=== PATIENT | female | born 1980 | race Two or more races ===

== ENCOUNTER 2017-05-17 18:01 | Observation (INO) | payer MEDICAID ==
[~2017-05-17] VITALS: Ht 154.9 cm; Wt 80.7 kg
[2017-05-17 18:36] LABS: CLARITY URINE CLOUDY (CLEAR); COLOR URINE DARK YELLOW (YELLOW); GLUCOSE URINE NEGATIVE (NEGATIVE); KETONES URINE TRACE (NEGATIVE); LEUKOCYTE ESTERASE URINE TRACE (NEGATIVE); NITRITE URINE NEGATIVE (NEGATIVE); OCCULT BLOOD URINE NEGATIVE (NEGATIVE); PROTEIN URINE NEGATIVE (NEGATIVE); SPECIFIC GRAVITY URINE 1.022 (1.005-1.030)
[2017-05-17] MEDS: LACTATED RINGERS 1,000 ML IV SCH ×2 (19:09→19:54)
[2017-05-17] MEDS ORDERED: CEFAZOLIN 2,000 MG in DEXT 5% WATER 100 ML IV SCH (20:00)
[2017-05-17] MEDS: TERBUTALINE SULFATE 1MG/ML VIAL SUBCUT PRN ×2 (20:08→21:33)
[2017-05-17] MEDS ORDERED: CITRIC ACID/SODIUM CITRATE SOLN 30ML UDC PO SCH (21:30)
== END 2017-05-17 22:37 | disposition home or self-care (01) ==
LOC: L&D 18:01
PROVIDERS: ADMIT Obstetrics & Gynecology; ATTEND Obstetrics & Gynecology
DX: O26.893 Other specified pregnancy related conditions, third trimester (principal); R10.9 Unspecified abdominal pain; M54.9 Dorsalgia, unspecified; Z3A.34 34 weeks gestation of pregnancy
CPT/HCPCS: 81001; 96361; 96365; 96372; G0378; J0690; J3105; J7120; 96360; J7060

== ENCOUNTER 2017-08-13 00:58 | Inpatient (IN) | payer MEDICAID ==
[~2017-08-13] VITALS: Ht 152.4 cm; Wt 71.2 kg
[2017-08-13] MEDS ORDERED: SODIUM CHLORIDE 0.9% 1,000 ML IV ONE (02:43)
[2017-08-13] MEDS ORDERED: KETOROLAC 30MG/ML VIAL IV STA (02:43)
[2017-08-13 03:06] LABS: INR 1.1
[2017-08-13 03:08] LABS: HCG SCREEN NEGATIVE
[2017-08-13 03:09] LABS: BASOPHILS % 0.3 % (0.0-2.0); EOSINOPHILS % 0.7 % (0.0-5.0); HEMATOCRIT. 34.4 % (36.0-48.0); HEMOGLOBIN. 10.9 g/dL (12.0-16.0); MEAN CORPUSCULAR HEMOGLOBIN 23.6 pg (28.0-32.0); MEAN CORPUSCULAR VOLUME 74.8 fL (81.0-99.0); MEAN PLATELET VOLUME 9.3 fl (7.4-10.4); PLATELET 320 x1000/uL (130-400); RED CELL DISTRIBUTION WIDTH 26.4 % (11.6-14.6)
[2017-08-13 03:14] LABS: CARBON DIOXIDE 29 mEq/L (21-32); CHLORIDE 104 mEq/L (98-107)
[2017-08-13 03:43] LABS: CLARITY URINE CLEAR (CLEAR); COLOR URINE YELLOW (YELLOW); KETONES URINE NEGATIVE (NEGATIVE); LEUKOCYTE ESTERASE URINE 1+ (NEGATIVE); NITRITE URINE NEGATIVE (NEGATIVE); OCCULT BLOOD URINE NEGATIVE (NEGATIVE); PH URINE 8.5 (4.5-8.0); PROTEIN URINE NEGATIVE (NEGATIVE); SPECIFIC GRAVITY URINE 1.017 (1.005-1.030)
[2017-08-13] MEDS ORDERED: PIPERACILLIN/TAZOBACTAM 3.375GM/50ML PREMIX IV ONE (04:30)
[2017-08-13] MEDS ORDERED: PIPERACILLIN/TAZ 3.375G PREMIX 50 ML IV NR (04:45)
[2017-08-13 09:00] VITALS: BP 100/62
[2017-08-13] MEDS ORDERED: KETOROLAC 30MG/ML VIAL IV PRN (09:30)
[2017-08-13] MEDS ORDERED: MORPHINE SULFATE 4 MG/ML CPJ (NOT FOR IM USE) IV PRN (11:30)
[2017-08-13 12:00] VITALS: BP_SYST 100; BP_SYST 102; BP_DIAS 62
[2017-08-13 13:49] LABS: HEPATITIS B SURFACE ANTIGEN NEGATIVE
[2017-08-13] MEDS: SODIUM CHLORIDE 0.9% 1,000 ML IV SCH (13:52)
[2017-08-13 14:18] LABS: HEPATITIS B CORE AB IGM NEGATIVE
[2017-08-13 14:19] LABS: HEPATITIS A AB IGM NEGATIVE (NEGATIVE)
[2017-08-13 16:00] VITALS: BP 97/60
[2017-08-13 20:00] VITALS: BP 98/66
[2017-08-14] VITALS: BP 99/82
[2017-08-14] MEDS: HYDROCODONE/ACETAMINOPHEN 5/325MG TABLET PO PRN ×2 (00:37→23:39)
[2017-08-14] MEDS: SODIUM CHLORIDE 0.9% 1,000 ML IV SCH ×3 (00:39→23:40)
[2017-08-14 04:00] VITALS: BP 98/50
[2017-08-14 06:06] LABS: BASOPHILS % 0.7 % (0.0-2.0); EOSINOPHILS % 6.5 % (0.0-5.0); HEMOGLOBIN. 10.4 g/dL (12.0-16.0); LYMPHOCYTES % 30.9 % (20.0-50.0); MEAN CORPUSCULAR HEMOGLOBIN 23.7 pg (28.0-32.0); MEAN CORPUSCULAR VOLUME 75.5 fL (81.0-99.0); MEAN PLATELET VOLUME 9.2 fl (7.4-10.4); MONOCYTES % 6.1 % (2.0-8.0); NEUTROPHILS % 55.8 % (40.0-76.0); PLATELET 296 x1000/uL (130-400); RED BLOOD CELL COUNT 4.37 mill/uL (4.2-5.4); RED CELL DISTRIBUTION WIDTH 26.3 % (11.6-14.6)
[2017-08-14 07:01] LABS: CHLORIDE 108 mEq/L (98-107)
[2017-08-14 07:06] LABS: CARBON DIOXIDE 24 mEq/L (21-32)
[2017-08-14 08:00] VITALS: BP 100/53
[2017-08-14 12:00] VITALS: BP 116/59
[2017-08-14 16:34] VITALS: BP 120/60
[2017-08-14 20:00] VITALS: BP 120/60
[2017-08-15] VITALS: BP 120/60
[2017-08-15 04:00] VITALS: BP 118/60
[2017-08-15 08:00] VITALS: BP 99/63
[2017-08-15 12:02] VITALS: BP 108/60
[2017-08-15 12:53] VITALS: BP 108/60
== END 2017-08-15 13:40 | disposition home or self-care (01) ==
LOC: ER 00:58 → ENRESERV 08:04 → 6EST 08:58
PROVIDERS: ADMIT Internal Medicine; ATTEND Internal Medicine
DX: K80.10 Calculus of gallbladder with chronic cholecystitis without obstruction (principal); F32.9 Major depressive disorder, single episode, unspecified; D64.9 Anemia, unspecified; R79.89 Other specified abnormal findings of blood chemistry; R74.0 Nonspecific elevation of levels of transaminase and lactic acid dehydrogenase [LDH]; Z98.891 History of uterine scar from previous surgery
CPT/HCPCS: 36415; 74181; 76705; 80053; 80076; 81001; 82248; 83690; 84703; 85025; 85610; 86705; 86709; 86803; 87040; 87086; 87340; 96361; 96365; 96375; 99285; J1885; J2543; J7030

== ENCOUNTER 2025-01-10 18:04 | Emergency (ER) | payer MEDICAID ==
[~2025-01-10] VITALS: Ht 152.4 cm; Wt 70.0 kg
[2025-01-10 18:15] VITALS: O2SAT 99
[2025-01-10 18:58] LABS: BASOPHILS % 0.3 % (0.0-2.0); EOSINOPHILS % 1.3 % (0.0-5.0); HEMATOCRIT. 39.8 % (36.0-48.0); HEMOGLOBIN. 13.3 g/dL (12.0-16.0); LYMPHOCYTES % 13.8 % (20.0-50.0); MEAN CORPUSCULAR HEMOGLOBIN 29.6 pg (28.0-32.0); MEAN CORPUSCULAR HGB CONC 33.3 g/dL (31.0-37.0); MEAN CORPUSCULAR VOLUME 88.9 fL (81.0-99.0); MEAN PLATELET VOLUME 9.1 fl (7.4-10.4); MONOCYTES % 4.5 % (2.0-8.0); NEUTROPHILS % 80.1 % (40.0-76.0); PLATELET 271 x1000/uL (130-400); RED BLOOD CELL COUNT 4.48 mill/uL (4.2-5.4); RED CELL DISTRIBUTION WIDTH 14.1 % (11.6-14.6); WHITE BLOOD COUNT 12.7 x1000/uL (4.5-11.0)
[2025-01-10 19:05] LABS: CHLORIDE 106 mEq/L (98-107); POTASSIUM 3.8 mEq/L (3.5-5.1); SODIUM 140 mEq/L (136-145)
[2025-01-10 19:06] LABS: CALCIUM 9.6 mg/dL (8.7-10.4); CARBON DIOXIDE 25 mEq/L (21-32)
[2025-01-10 19:11] LABS: CREATININE 0.8 mg/dL (0.6-1.0); GLUCOSE 98 mg/dL (70-105)
[2025-01-10 19:12] LABS: UREA NITROGEN BLOOD 14 mg/dL (9-23)
[2025-01-10 19:13] LABS: ALANINE AMINOTRANSFERASE 24 IU/L (10-49); ALBUMIN 4.8 g/dL (3.2-4.8); ASPARTATE AMINOTRANSFERASE 26 IU/L (<34); BILIRUBIN DIRECT < 0.1 mg/dL (<=3.0)
[2025-01-10 19:14] LABS: BILIRUBIN TOTAL 0.4 mg/dL (0.1-1.0); PROTEIN TOTAL 7.4 g/dL (6.0-8.3)
[2025-01-10 20:51] LABS: CLARITY URINE TURBID (CLEAR); COLOR URINE ORANGE (YELLOW); GLUCOSE URINE NEGATIVE (NEGATIVE); KETONES URINE TRACE (NEGATIVE); LEUKOCYTE ESTERASE URINE 3+ (NEGATIVE); NITRITE URINE NEGATIVE (NEGATIVE); OCCULT BLOOD URINE 3+ (NEGATIVE); PROTEIN URINE 2+ (NEGATIVE); SPECIFIC GRAVITY URINE 1.021 (1.005-1.030)
[2025-01-10 21:01] LABS: RBC URINE 15-25 /hpf (0-2); SQUAMOUS EPITHELIAL CELL URINE FEW /lpf (RARE/1+); WBC URINE 15-25 /hpf (0-2)
[2025-01-10 21:02] LABS: BACTERIA URINE 3+
[2025-01-10] MEDS ORDERED: CEPH500C2 MT (21:55)
[2025-01-10] MEDS: CEFTRIAXONE SODIUM 1G VIAL IM ONE (22:05)
[2025-01-10 22:06] VITALS: BP 122/77; PULSE 81; RESP 18; TEMP 36.9; O2SAT 100
== END 2025-01-10 22:07 | disposition home or self-care (01) ==
LOC: ER 18:04
DX: N39.0 Urinary tract infection, site not specified (principal); Z79.899 Other long term (current) drug therapy
CPT/HCPCS: 99283; 80076; 80048; 81003; 81025; 83690; 85025; 87086; 87186; 87077; 36415; 96372; J0696

== ENCOUNTER 2025-07-18 18:00 | Emergency (ER) | payer MEDICAID ==
[~2025-07-18] VITALS: Ht 154.9 cm; Wt 77.0 kg
[~2025-07-18 18:00] MED LIST: CEPH500C2 MT
[2025-07-18 18:18] VITALS: O2SAT 100
[2025-07-18] MEDS: LIDOCAINE 5% PATCH TOP SCH (23:18)
[2025-07-18] MEDS: KETOROLAC 15MG/ML VIAL IM ONE (23:18)
[2025-07-18 23:40] LABS: CLARITY URINE CLEAR (CLEAR); COLOR URINE YELLOW (YELLOW); GLUCOSE URINE NEGATIVE (NEGATIVE); KETONES URINE NEGATIVE (NEGATIVE); LEUKOCYTE ESTERASE URINE NEGATIVE (NEGATIVE); NITRITE URINE NEGATIVE (NEGATIVE); OCCULT BLOOD URINE NEGATIVE (NEGATIVE); PH URINE 6.5 (4.5-8.0); PROTEIN URINE NEGATIVE (NEGATIVE); SPECIFIC GRAVITY URINE 1.022 (1.005-1.030); UROBILINOGEN URINE 0.2 E.U./dL (0.2-1.0)
[2025-07-19] MEDS ORDERED: IBUP-1455 MT (00:12)
[2025-07-19] MEDS ORDERED: CYCL10TA21 MT (00:12)
[2025-07-19] MEDS ORDERED: LIDO-53 TP (00:12)
[2025-07-19 00:45] VITALS: BP 100/59; PULSE 63; RESP 16; TEMP 36.8; O2SAT 99
== END 2025-07-19 00:47 | disposition home or self-care (01) ==
LOC: ER 18:00
DX: M54.50 Low back pain, unspecified (principal)
CPT/HCPCS: 99284; 81003; 81025; 72100; 96372; J1885